=== PATIENT | female | born 1960 | race Caucasian/White ===

== ENCOUNTER → 2016-10-19 | Outpatient (CLI) | payer BC ==
[~2016-10-19] MED LIST: NO MEDICATIONS
[2016-10-19 09:25] LABS: BILIRUBIN, DIRECT 0.1 mg/dL (0.0-0.2); BILIRUBIN,TOTAL 0.6 mg/dL (0.2-2.0); CREATININE SERUM 0.5 mg/dL (0.6-1.4); GLOM FILT RATE Estimated 109.7 mL/min (>60); POTASSIUM 4.8 mmol/L (3.5-5.1); PROTEIN TOTAL SERUM 7.6 g/dL (6.0-8.3)
== END | disposition home or self-care (01) ==
LOC: SLABONLY 08:32
PROVIDERS: Orthopaedic Surgery
DX: E78.5 Hyperlipidemia, unspecified (principal)
CPT/HCPCS: 80053; 80061; 82248

== ENCOUNTER 2017-02-13 07:32 | Emergency (ER) | payer BC ==
[~2017-02-13] VITALS: Ht 149.9 cm; Wt 47.6 kg
--- NOTE | ~2017-02-13 | CT4 ---
[facility] A Service of [facility] & [facility] RADIOLOGY TEXT RESULTS PATIENT: ALLIE HAYWARD LOCATION: SED : 64 UNIT #: [id number] AGE: [address]: Dereck Pearson MD SEX: F ORDER DR: [id number] [address] [address] [id number] E MR#: [id number] Acc #: [id number] NAME: ALLIE HAYWARD : 1960 SEX: F STUDY DATE/TIME: 02/13/2017 09:36 UNIT: SED ROOM: STUDY DESCRIPTION: CT Abd and Pelv Wo Cont Attending Physician: Dereck Pearson M.D. Ordering Physician: Dereck Pearson M.D. Primary Care Physician: Александр Rodriguez M.D. MEDICAL IMAGING REPORT This report is preliminary unless electronic signature is present. EXAM CT abdomen and pelvis without contrast 02/13/2017 at 09:36 hours HISTORY A 56-year-old woman complaining of deep diffuse cramping abdominal pain with nausea, vomiting and diarrhea since returning from [place] on 02/11/2017. TECHNIQUE Helical noncontrasted images were obtained from the lung bases through the pubic symphysis without oral or intravenous contrast. Sagittal and coronal reconstructions were performed. Total exam DLP 526 mGy/cm. This CT exam was performed with one or more of the following radiation dose reduction techniques: automatic exposure control, adjustment of mA and/or kV according to patient size, and iterative reconstruction. FINDINGS Images through the lung bases are clear of acute densities. There is calcified granuloma at the left base. There is no effusion. The distal esophagus is normal. Noncontrasted images through the abdomen demonstrate a normal appearance to the liver. The spleen is normal in size with calcified granulomata. The pancreas and pancreatic duct are normal. There are clips consistent with prior cholecystectomy. The common bile duct is normal. The adrenals are unremarkable. The kidneys demonstrate no mass or stone. There is no evidence of obstruction or ureteral calculus. The unopacified stomach is contracted but appears normal. There is no small bowel distension or small bowel wall thickening. The appendix is surgically absent. The colon demonstrates no wall thickening. There are STS. [facility] A Service of [facility] & [facility] RADIOLOGY TEXT RESULTS PATIENT: ALLIE HAYWARD LOCATION: SED : 64 UNIT #: [id number] AGE: [address]: Dereck Pearson MD SEX: F ORDER DR: diverticula of the descending colon and sigmoid colon. CT pelvis demonstrates a normal appearance to the bladder, uterus, adnexa and rectum. The patient has very coarse atherosclerotic calcifications of the abdominal aorta including the bifurcation of the iliacs with very coarse calcifications at the origin of the iliac vessels right greater than left which could be clinically significant. Correlate for any symptoms of claudication. Bone window images demonstrate multilevel degenerative disc disease. No lumbar fracture. IMPRESSION 1. There is no distension of the small bowel, colon. No increased fluid or bowel wall thickening. The appendix is surgically absent. 2. The gallbladder is surgically absent. The bile ducts and pancreas are normal. 3. Uncomplicated diverticulosis is present in the descending colon and sigmoid colon. 4. Very coarse atherosclerotic change of the abdominal aorta particularly the area of the bifurcation and the origin of the common iliacs right greater than left. Clinically significant stenosis may be present on the right. Dictated by... Lea Horn M.D. THIS IS AN ELECTRONICALLY VERIFIED REPORT Lea Horn M.D. at 02/13/2017 9:02 PM Blanca TD: 02/13/2017 14:30 JOB #: [id number] MEDICAL IMAGING REPORT Page 1 of 1
[2017-02-13 07:51] LABS: URINE SOURCE CLEAN CATCH
[2017-02-13 07:53] LABS: URINE APPEARANCE CLEAR; URINE BLOOD 3+ (NEG); URINE COLOR YELLOW; URINE GLUCOSE NEG (NORM); URINE KETONE TRACE (NEG); URINE LEUKOCYTE ESTERASE 3+ (NEG); URINE NITRATE NEG (NEG); URINE PROTEIN TRACE (NEG)
[2017-02-13 07:54] LABS: MICRO INDICATED? YES; URINE BILIRUBIN NEG (NEG)
[2017-02-13 08:09] LABS: CULTURE INDICATED? YES; URINE BACTERIA 1+ (NEG); URINE SQUAMOUS EPITHELIAL CELL MANY /[HPF]; URINE WBC 50-100 /[HPF] (0-5)
[2017-02-13 08:09] LABS: BASOPHIL% 0.6 % (0-2.5); EOSINOPHIL# 0.1 X10e3 (0-0.7); EOSINOPHIL% 1.5 % (0.0-7.0); HEMATOCRIT 46.6 % (35.0-45.0); HEMOGLOBIN 16.1 gm/dL (12.0-16.0); LYMPHOCYTE# 2.4 X10e3 (1.0-3.5); LYMPHOCYTE% 31.3 % (17.0-45.0); MEAN CELL VOLUME 105.8 FL (83-96); MEAN CORPUSCULAR HEMOGLOBIN 36.6 PG (28-34); MEAN CORPUSCULAR HGB CONC 34.6 g/dL (30-36); MEAN PLATELET VOLUME 7.9 FL (6.5-11.5); MONOCYTE# 0.9 X10e3 (0-1.0); NEUTROPHIL# 4.3 X10e3 (1.5-7.1); NEUTROPHIL% 54.6 % (40-75); PLATELET COUNT 206 X10e3 (140-420); RED CELL DISTRIBUTION WIDTH 13.4 % (11.0-15.5); WHITE BLOOD COUNT 7.8 X10e3 (4.0-10.5)
[2017-02-13 08:16] LABS: DIFF IND NO
[2017-02-13 08:20] LABS: ALBUMIN SERUM 4.4 g/dL (3.5-5.0); ALKALINE PHOSPHATASE 63 U/L (32-92); ALT (SGPT) 14 U/L (10-40); AMYLASE 16 U/L (0-46); AST (SGOT) 22 U/L (10-42); BILIRUBIN,TOTAL 0.5 mg/dL (0.2-2.0); BLOOD UREA NITROGEN 7 mg/dL (9-23); BUN/CREATININE RATIO 11.66; CALCIUM SERUM 9.1 mg/dL (8.4-10.2); CARBON DIOXIDE 28 mmol/L (22-31); CHLORIDE 97 mmol/L (100-111); CREATININE SERUM 0.6 mg/dL (0.6-1.4); GLOM FILT RATE Estimated 103.3 mL/min (>60); GLUCOSE FASTING 99 mg/dL (70-110); LIPASE 35 U/L (22-51); POTASSIUM 3.5 mmol/L (3.5-5.1); PROTEIN TOTAL SERUM 7.8 g/dL (6.0-8.3); SODIUM 133 mmol/L (135-145)
[2017-02-13 08:27] LABS: BILIRUBIN, DIRECT <0.1 mg/dL (0.0-0.2); BILIRUBIN,INDIRECT 0.4 mg/dL (0.0-0.9)
[2017-02-13] MEDS ORDERED: NO MEDICATIONS (09:26)
== END 2017-02-13 10:21 | disposition home or self-care (01) ==
LOC: SED 07:32 → CFTX 07:58 → SED 10:21
PROVIDERS: Emergency Medicine
DX: R10.13 Epigastric pain (principal); R11.2 Nausea with vomiting, unspecified; R19.7 Diarrhea, unspecified; K21.9 Gastro-esophageal reflux disease without esophagitis; I10 Essential (primary) hypertension; Z90.49 Acquired absence of other specified parts of digestive tract; Z88.1 Allergy status to other antibiotic agents
CPT/HCPCS: 36415; 74176; 80048; 80076; 81003; 82150; 83690; 85025; 87086; 96361; 96372; 96374; 99284; J0500; J2405